=== PATIENT | female | born 1995 | race Caucasian/White ===

== ENCOUNTER → 2020-08-29 16:23 | Outpatient (CLI) | payer OTHER, SELFPAY ==
[2020-08-29 17:21] LABS: Add Manual Diff / Slide Review NO; Basophils Absolute Auto 0 /uL (0-100); Basophils Percent Auto 0.2 % (0-2); Eosinophils Absolute Auto 200 /uL (0-450); Eosinophils Percent Auto 1.6 % (2-4); Hematocrit 40.7 % (36-46); Hemoglobin 13.9 g/dL (12.0-16.0); Lymphocytes Absolute Auto 1900 /uL (1100-4500); Lymphocytes Percent Auto 19.6 % (25-40); Mean Corpuscular HGB Conc 34.1 % (30-36); Mean Corpuscular Hemoglobin 29.4 PG (26-34); Monocytes Absolute Auto 700 /uL (0-900); Monocytes Percent Auto 7.5 % (3-14); Neutrophils Absolute Auto 7000 /uL (1500-7000); Neutrophils Percent Auto 71.1 % (50-75); Platelet Count 191 X10^3/uL (150-400); Red Blood Cell Count 4.74 X10^6/uL (4.0-5.2); Red Cell Distribution Width 13.3 % (11.6-14.8); White Blood Cell Count 9.8 X10^3/uL (4.5-11.0)
[2020-08-29 17:43] LABS: Alanine Aminotransferase 18 IU/L (<35); Albumin 4.5 g/dL (3.5-5.0); Albumin Globulin Ratio 1.3 (1.0-2.8); Alkaline Phosphatase 59 U/L (38-126); Aspartate Aminotransferase 26 IU/L (14-36); BUN Creatinine Ratio 27.5 (6-22); Bilirubin Total 0.4 mg/dL (0.2-1.3); Blood Urea Nitrogen 19 mg/dL (7-17); Calcium 9.6 mg/dL (8.4-10.2); Carbon Dioxide 25 mmol/L (22-32); Chloride 104 mmol/L (98-107); Estimated Glomerular Filt Rate > 60.0 mL/min (>60); Globulin 3.4 g/dL (1.7-4.1); Glucose 98 mg/dL (70-100); HEMOLYSIS < 15 (0-50); Potassium 3.6 mmol/L (3.4-5.1); Sodium 138 mmol/L (137-145); Total Protein 7.9 g/dL (6.3-8.2)
== END ==
PROVIDERS: PCP Registered Nurse; Referring Provider Registered Nurse; Visit Provider Registered Nurse
DX: Z00.00 Encounter for general adult medical examination without abnormal findings (principal); J45.909 Unspecified asthma, uncomplicated; J30.2 Other seasonal allergic rhinitis
CPT/HCPCS: 36415; 80053; 85025

== ENCOUNTER 2022-04-06 11:37 | Emergency (ER) | payer OTHER, SELFPAY ==
[2022-04-06 11:54] VITALS: BP 123/60; PULSE 70; RESP 16; TEMP 36.8; O2SAT 98; BMI 27.4
[2022-04-06] MEDS: TET,DIPH,PERTUSS(ACELL),VAC/PF 0.5 ML SYRINGE IM (12:03)
[2022-04-06] MEDS: LIDOCAINE 1% (PF) 5 ML INJ (12:25)
[2022-04-06] MEDS: IBUPROFEN 400 MG TABLET 800 MG PO (12:25)
--- NOTE | 2022-04-06 13:00 | ED_ITS ---
HPI - Wound/Laceration <Noah Lewis PA-C - Last Filed: 04/06/22 13:13> General Chief Complaint: Wound/Laceration Stated Complaint: Lt hand laceration with knife Time Seen by Provider: 04/06/22 12:10 Source: patient Mode of arrival: Ambulatory History of Present Illness HPI narrative: 26-year-old female with past medical history asthma, seasonal allergies presents to the ED status post a laceration sustained to her left hand. Patient states that she accidentally stabbed her left hand between her 1st and 2nd digits with a kitchen knife. Patient denies numbness, weakness. Patient endorses some mild tingling in the left thumb. Bleeding was controlled with pressure. Patient is able to move all fingers, range of motion is only limited by pain. Patient's tetanus is out-of-date. Related Data Home Medications Medication Instructions Recorded Confirmed fexofenadine 60 mg tablet (Madalyn 60 mg PO DAILY 08/29/20 08/29/20 Allergy) Allergies Allergy/AdvReac Type Severity Reaction Status Date / Time No Known Drug Allergies Allergy Verified 08/29/20 15:51 Review of Systems <Noah Lewis PA-C - Last Filed: 04/06/22 13:13> Review of Systems ROS Unobtainable: All systems reviewed & are unremarkable except as noted in HPI and below Constitutional Constitutional: Denies chills, Denies fatigue, Denies fever(s), Denies frequent falls, Denies lethargy and Denies weakness Eyes Eyes: Denies change in vision, Denies eye discharge, Denies irritation and Denies loss of vision ENT Ears, Nose, Mouth, and Throat: Denies change in voice, Denies dizziness, Denies neck pain, Denies sore throat and Denies throat swelling Cardiovascular Cardiovascular: Denies chest pain, Denies irregular heart rhythm, Denies lightheadedness, Denies palpitations, Denies dyspnea, Denies dyspnea on exertion and Denies orthopnea Respiratory Respiratory: Denies cough, Denies dyspnea, Denies dyspnea on exertion and Denies wheezing Gastrointestinal Gastrointestinal: Denies abdominal pain, Denies change in bowel habits, Denies diarrhea, Denies nausea and Denies vomiting Genitourinary Genitourinary: Denies hematuria, Denies flank pain, Denies urinary incontinence and Denies urinary urgency Musculoskeletal Musculoskeletal: Denies back pain, Denies muscle weakness, Denies neck pain, Denies numbness and Denies tingling Integumentary/Breasts Skin/Breast: Denies pruritus, Denies erythema, Denies rash and Denies wounds Comments: Laceration to left hand between 1st and 2nd digits. No numbness, weakness. Tingling in left thumb Neurologic Neurologic: Denies behavioral changes, Denies confusion, Denies dizziness, Denies frequent falls, Denies loss of vision, Denies numbness, Denies tingling and Denies weakness Psychiatric Psychiatric: Denies anxiety, Denies behavioral changes, Denies confusion, Denies depression, Denies homicidal ideation and Denies suicidal ideation Endocrine Endocrine: Denies fatigue, Denies flushing and Denies palpitations Hematologic/Lymphatic Hematologic/Lymphatic: Denies easy bruising Allergic/Immunologic Allergic/Immunologic: Denies urticaria, Denies throat swelling and Denies wheezing Patient History <Noah Lewis PA-C - Last Filed: 04/06/22 13:13> Medical History Actinic keratosis (~2019) Adult general medical exam Allergies Astigmatism Cervical cancer screening Chicken pox Seasonal allergies Family History Father Hypertension Mother Hyperlipidemia Glaucoma Cataracts, bilateral Heart murmur Grandfather Diabetes mellitus Grandmother Rheumatoid arthritis Grandfather Diabetes mellitus History of heart disease Hyperlipidemia Hypertension Stroke Social History Smoking Status: Former smoker Smoking Status: Former smoker Substance Use Type: does not use Exam <Noah Lewis PA-C - Last Filed: 04/06/22 13:13> Narrative Exam Narrative: Const General:?cooperative, healthy appearing and comfortable [facility] Head:?normal to inspection Ears:?hearing grossly normal bilaterally Nose:?external nose normal Face and sinus:?normal facial exam and sinuses nontender Mouth:?oral mucosae normal Throat:?posterior oropharynx normal Eyes General:?appearance normal, both eyes and all related structures Neck Neck:?normal visual inspection and no lymphadenopathy noted Resp Effort & Inspection:?normal respiratory effort Auscultation:?clear to auscultation bilaterally Cardio Rate:?regular rate Rhythm:?regular rhythm Integumentary 0.5 cm linear laceration between 1st and 2nd digit of the left hand on the dorsal aspect. Strength and sensation intact. Range of motion intact, limited by pain. Patient appears neurovascularly intact. Neuro General:?patient alert, patient awake and patient oriented x3 Initial Vital Signs Initial Vital Signs: Vital Signs Temperature 98.2 F 04/06/22 11:54 Pulse Rate 70 04/06/22 11:54 Respiratory Rate 16 04/06/22 11:54 Blood Pressure 123/60 04/06/22 11:54 Pulse Oximetry 98 04/06/22 11:54 Oxygen Delivery Method 04/06/22 11:54 <Phoenix Lafleur DO - Last Filed: 04/06/22 13:38> Initial Vital Signs Initial Vital Signs: Vital Signs Temperature 98.2 F 04/06/22 11:54 Pulse Rate 70 04/06/22 11:54 Respiratory Rate 16 04/06/22 11:54 Blood Pressure 123/60 04/06/22 11:54 Pulse Oximetry 98 04/06/22 11:54 Oxygen Delivery Method 04/06/22 11:54 Procedures <JULIA Cruz Last Filed: 04/06/22 13:13> Laceration Repair Laceration 1: Site: hand Side (If applicable): left Size (cm): 0.5 Description: linear Depth: simple, single layer Local Anesthetic: lidocaine 1% Amount of anesthesia used (mL): 0.5 Skin layer closed with: nylon Skin layer suture size: 5-0 Number of sutures: 2 Course <JULIA Cruz Last Filed: 04/06/22 13:13> Orders Ordered: Discontinued Medications Diphtheria/Tetanus/Acell Pertussis (Tet,Diph,Pertuss(Acell),Vac/Pf 0.5 Ml Sy ringe) 0.5 ml IM .ONCE ONE Stop: 04/06/22 12:00 Last Admin: 04/06/22 12:03 Dose: 0.5 ml Documented By: MLM Ibuprofen (Ibuprofen 400 Mg Tablet) 800 mg PO NOW ONE Stop: 04/06/22 12:21 Last Admin: 04/06/22 12:25 Dose: 800 mg Documented By: RB Lidocaine HCl (Lidocaine 1% (Pf) 5 Ml) 5 ml INJ NOW ONE Stop: 04/06/22 12:21 Last Admin: 04/06/22 12:25 Dose: 5 ml Documented By: RB Vital Signs Vital signs: Vital Signs - 8 hr 04/06/22 11:54 04/06/22 13:08 Temperature 98.2 F 97.8 F Pulse Rate 70 69 Respiratory Rate 16 12 Blood Pressure 123/60 147/76 H Pulse Oximetry 98 96 Oxygen Delivery Method Room Air Room Air <Phoenix Lafleur DO - Last Filed: 04/06/22 13:38> Orders Ordered: Discontinued Medications Diphtheria/Tetanus/Acell Pertussis (Tet,Diph,Pertuss(Acell),Vac/Pf 0.5 Ml Syringe) 0.5 ml IM .ONCE ONE Stop: 04/06/22 12:00 Last Admin: 04/06/22 12:03 Dose: 0.5 ml Documented By: MLM Ibuprofen (Ibuprofen 400 Mg Tablet) 800 mg PO NOW ONE Stop: 04/06/22 12:21 Last Admin: 04/06/22 12:25 Dose: 800 mg Documented By: RB Lidocaine HCl (Lidocaine 1% (Pf) 5 Ml) 5 ml INJ NOW ONE Stop: 04/06/22 12:21 Last Admin: 04/06/22 12:25 Dose: 5 ml Documented By: RB Vital Signs Vital signs: Vital Signs - 8 hr 04/06/22 11:54 04/06/22 13:08 Temperature 98.2 F 97.8 F Pulse Rate 70 69 Respiratory Rate 16 12 Blood Pressure 123/60 147/76 H Pulse Oximetry 98 96 Oxygen Delivery Method Room Air Room Air MDM - Wound/Laceration <Noah Lewis PA-C - Last Filed: 04/06/22 13:13> MDM Narrative Medical decision making narrative: 26-year-old female with past medical history asthma, seasonal allergies presents to the ED status post a laceration sustained to her left hand. Patient is neurovascularly intact. Laceration was repaired with 2 sutures. Tetanus was updated. Patient tolerated the procedure well. ED return precautions, wound care instructions discussed with patient patient verbalized understanding. Discharge Plan Departure Patient Disposition: Home Clinical Impression: Laceration Instructions: DI for Laceration Repair Activity Restrictions/Additional Instructions: You were evaluated in the ED today for a laceration to your left hand. Your injury was repaired with 2 sutures. Your tetanus was also updated today. The sutures will need to be removed in 7-10 days, for which you may go to an urgent care, your PCP or return to the ED. please keep the wound clean and dry for the 1st 24 hours, after which you can keep clean with soap and water, and dress it after it is dry. As with all skin injuries, infection is a possibility, signs of which would include worsening pain, swelling, redness, discharge, warmth. You may take Tylenol or ibuprofen for pain. Return to the ED if you note any signs of infection. Prescriptions: No Action fexofenadine [Madalyn Allergy] 60 mg tablet 60 mg PO DAILY Visit Report Forms: Patient Portal/API <Phoenix Lafleur, DO - Last Filed: 04/06/22 13:38> Cosign ED Attending Cosignature Attestation: Dr Lafleur Co-Sign Statement: I was available for consultation during this patient's emergency department visit. This chart is signed by myself for administrative purposes only. I did not have direct contact with this patient during this visit. They were seen independently by the APC.
[2022-04-06 13:08] VITALS: BP 147/76; PULSE 69; RESP 12; TEMP 36.6; O2SAT 96
== END 2022-04-06 13:09 | disposition home or self-care (01) ==
PROVIDERS: Emergency Provider Student in an Organized Health Care Education/Training Program
DX: S61.412A Laceration without foreign body of left hand, initial encounter (principal); W26.0XXA Contact with knife, initial encounter; Z23 Encounter for immunization
CPT/HCPCS: 12001; 90471; 99283; 99284; 90715